=== PATIENT | female | born 1955 | race Hispanic/Latino ===

== ENCOUNTER 2016-10-31 11:00 | Outpatient (CLI) | payer OTHER | END 2016-10-31 11:01 | disposition home or self-care (01) | LOC: SLR 11:00 | PROVIDERS: ATTEND Specialist | DX: G47.33 Obstructive sleep apnea (adult) (pediatric) (principal) | CPT/HCPCS: 95810 ==

== ENCOUNTER 2017-02-28 06:06 | Day surgery (SDC) | payer OTHER ==
[2017-02-28] MEDS ORDERED: WATER FOR IRRIG STERILE IR ONE (07:12)
--- NOTE | 2017-02-28 07:43 | Anesthesia Consultation ---
Anesthesia Consult and Med Hx Date of service: 02/28/17 - Airway Anesthetic Teeth Evaluation: Good ROM Head & Neck: Adequate Mental/Hyoid Distance: Adequate Mallampati Class: Class III Intubation Access Assessment: Possibly Difficult - Pre-Operative Health Status ASA Pre-Surgery Classification: ASA3 Proposed Anesthetic Plan: MAC - Pulmonary Hx Smoking: Yes Hx Pneumonia: Yes Hx Sleep Apnea: Yes - Cardiovascular System Hx Heart Attack/AMI: No Hx Cardia Arrhythmia: ( Hx of Irregular HR, had cath in 2006) - Gastrointestinal Hx Gastroesophageal Reflux Disease: Yes (Moderate, takes Nexium) - Endocrine Hx Renal Disease: No - Other Systems Hx Obesity: Yes (BMI= 42)
--- NOTE | 2017-02-28 07:44 | Anesthesia Day of Surgery ---
Anesthesia Day of Surgery - Day of Surgery Patient Examined: Yes Patient H&P Reviewed: Yes Patient is NPO: Yes
[2017-02-28] MEDS ORDERED: DIPRIVAN 10 MG/ML IV ONE (07:51)
[2017-02-28] MEDS ORDERED: NACL 0.9% 1000 ML 1,000 ML IV SCH (08:00)
--- NOTE | 2017-02-28 08:08 | Operative Report ---
Operative Report Operative Report: DATE 02/28/17 SURGERY: Upper endoscopy. SURGEON: Justina Bledsoe M.D. [employer]: Maira Oseguera DO PRE OP DX: Hx of gastric sleeve and GERD POST OP DX: distal esophagitis TYPE OF ANESTHESIA: MAC. ESTIMATED BLOOD LOSS: None. COMPLICATIONS: None. SPECIMENS REMOVED: None. FINDINGS: 1. distal esophagitis 2. Otherwise, normal sleeve anatomy a first portion of duodenum. INDICATIONS:INDICATION FOR PROCEDURE: Patient is a 61-year-old female with a hx of gastric sleeve and hiatal hernia repair. She had an another hiatal hernia repair by a different surgeon at a different facility. She continues to have reflux despite taking zantac and eating correctly. She was previously on omeprazole/protonix but has to be stopped due to renal issues that have now resolved. She is currently taking zantac but it only slightly relieves symptoms. PROCEDURE DETAILS: After consent was reviewed, patient was taken back to the operating room where patient was placed in the left lateral decubitus position and a bite block was placed in the mouth. After a time-out was called, MAC anesthesia was initiated. I then passed the endoscope into her oropharynx, into her esophagus, visualized the entire esophagus. she was noted to have distal esophagitis. The GE junction and hiatus were at the same level. I then visualized the stomach which had normal band anatomy and the first portion of the duodenum and there were no abnormalities I could clearly visualize. I did not retroflex due to her sleeve. I then desufflated the stomach and removed the endoscope. Patient tolerated procedure well and was transferred to recovery room in good and stable condition.
--- NOTE | 2017-02-28 08:10 | Discharge Summary ---
Providers - Providers Attending physician: CAITLIN BLEDSOE Primary care physician: ANA BARKSDALE DO Hospitalization Procedures: EGD Hospital course: 61 y.o. F came to Endoscopy for an EGD to evaluate GERD. She tolerated the procedure well. She was discharged the same day. Disposition: TO HOME OR SELFCARE Core Measure Documentation - Palliative Care Palliative Care/ Comfort Measures: Not Applicable - Core Measures Any of the following diagnoses?: none Exam - Physical Exam Narrative exam: same as prior - Constitutional Vitals: Temp Pulse Resp BP Pulse Ox 98.1 F 55 L 17 126/53 95 02/28/17 07:21 02/28/17 07:21 02/28/17 07:21 02/28/17 07:21 02/28/17 07:21 Plan Activity: no restrictions Additional Instructions: follow up in office with Dr. Bledsoe Follow up with: ANA BARKSDALE DO [Primary Care Provider] - 7 Days
--- NOTE | 2017-02-28 08:57 | Post Anesthesia Evaluation ---
- Post Anesthesia Evaluation Patient Participated: Yes Airway Patent: Yes Stable Respiratory Function: Yes Nausea/Vomiting: No Temp > 96.8F: Yes Pain Manageable: Yes Adequeate Hydration: Yes Anesthesia Complications: No
[2017-02-28 09:14] VITALS: BP 112/61
== END 2017-02-28 06:07 | disposition home or self-care (01) ==
LOC: GIO 06:06
PROVIDERS: ATTEND Surgery
DX: K21.0 Gastro-esophageal reflux disease with esophagitis (principal); E78.00 Pure hypercholesterolemia, unspecified; G47.30 Sleep apnea, unspecified; E66.9 Obesity, unspecified; F17.200 Nicotine dependence, unspecified, uncomplicated; Z68.41 Body mass index [BMI] 40.0-44.9, adult; Z90.710 Acquired absence of both cervix and uterus; Z98.84 Bariatric surgery status; Z88.0 Allergy status to penicillin; Z88.1 Allergy status to other antibiotic agents
CPT/HCPCS: J2704; J7030